=== PATIENT | male | born 1990 | race Hispanic/Latino ===

== ENCOUNTER 2016-10-15 18:33 | Emergency (ER) | payer OTHER ==
[2016-10-15 19:18] VITALS: BP 123/75; PULSE 79; RESP 14; TEMP 98.3; O2SAT 100
--- NOTE | 2016-10-15 19:35 | ED PDOC ---
HPI: General Adult Time Seen by Provider: 10/15/16 19:00 Chief Complaint (Nursing): Back Pain Chief Complaint (Provider): Cyst near coccyx History Per: Patient History/Exam Limitations: no limitations Onset/Duration Of Symptoms: Days Current Symptoms Are (Timing): Still Present Additional Complaint(s): Jas Allison is a 26 year old male that presents to the ED with a chief complaint of a painful cyst to tailbone. Patient was seen by engineering writer and was started on augmentin. His engineering writer told him to see a surgeon and he has an appt with surgeon this coming tuesday. He presents to ED today with pain to affected area. Patient has not taken any meds for pain relief. He denies active drainage, fever or chills. Patient has had similar pain to same area in the past but it has never caused this much pain. Past Medical History Reviewed: Historical Data, Nursing Documentation, Vital Signs Vital Signs: Last Vital Signs Temp 98.3 F 10/15/16 19:14 Pulse 79 10/15/16 19:14 Resp 14 10/15/16 19:14 BP 123/75 10/15/16 19:14 Pulse Ox 100 10/15/16 19:46 - Medical History PMH: No Chronic Diseases - Surgical History Surgical History: Appendectomy Other surgeries: ACL surgery right knee - Family History Family History: States: No Known Family Hx, Unknown Family Hx - Living Arrangements Living Arrangements: With Family - Social History Current smoker - smoking cessation education provided: No Alcohol: Social Drugs: Denies - Home Medications Home Medications: Ambulatory Orders Medication Instructions Recorded Ibuprofen [Motrin Tab] 800 mg PO Q8 PRN #20 tab 10/15/16 Sulfamethoxazole/Trimethoprim 1 tab PO BID #14 tab 10/15/16 [Bactrim DS 800 mg-160 mg] traMADol [Ultram] 50 mg PO TID PRN #15 tab 10/15/16 - Allergies Allergies/Adverse Reactions: Allergies Allergy/AdvReac Type Severity Reaction Status Date / Time azithromycin [From Zithromax] Allergy RASH Verified 10/15/16 19:22 Review of Systems ROS Statement: Except As Marked, All Systems Reviewed And Found Negative Constitutional: Negative for: Fever, Chills Skin: Positive for: Other (cyst in tailbone region) Physical Exam - Reviewed Nursing Documentation Reviewed: Yes Vital Signs Reviewed: Yes - Physical Exam Appears: Positive for: Non-toxic, No Acute Distress Head Exam: Positive for: ATRAUMATIC, NORMOCEPHALIC Cardiovascular/Chest: Positive for: Regular Rate, Rhythm. Negative for: Murmur Respiratory: Positive for: Normal Breath Sounds. Negative for: Wheezing Back: Positive for: Other (indurated, nonfluctuant pilonidal abscess noted to gluteal cleft. No active drainage or bleeding. Mildly tender to palpation, no erythematous streaking) Extremity: Positive for: Normal ROM Neurologic/Psych: Positive for: Alert, Oriented - ECG O2 Sat by Pulse Oximetry: 100 (RA) Pulse Ox Interpretation: Normal Medical Decision Making Medical Decision Making: Impression: Pilonidal Abscess Plan: * Toradol 60 mg IM Patient states he feels better after toradol injection. Discussed various pain control options with patient and inability to drain cyst at this time due to moderate induration with no fluctuance. Encouraged patient to meet with surgeon during his scheduled visit scheduled for this coming tuesday. Explained the importance of soaking area in warm Epsom salts. Patient was instructed to continue with augmentin and was also given rx bactrim , motrin and tramadol. Scribe Attestation: Documented by Anisa Boone, acting as a scribe for Aimee Wong PA-C. Provider Scribe Attestation: All medical record entries made by the Scribe were at my direction and personally dictated by me. I have reviewed the chart and agree that the record accurately reflects my personal performance of the history, physical exam, medical decision making, and the department course for this patient. I have also personally directed, reviewed, and agree with the discharge instructions and disposition. Disposition - Clinical Impression Clinical Impression: Pilonidal abscess - Patient ED Disposition Is Patient to be Admitted: No Counseled Patient/Family Regarding: Diagnosis, Need For Followup, Rx Given - Disposition Referrals: formerly [facility] [Outside] Disposition: Routine/Home Disposition Time: 20:05 Condition: STABLE Additional Instructions: Continue with current antibiotics. Take prescription meds as directed. Soak and sitz baths with Epsom salts as often as possible. Follow-up with surgeon as scheduled on Tuesday. Prescriptions: Ibuprofen [Motrin Tab] 800 mg PO Q8 PRN #20 tab PRN Reason: Pain, Moderate (4-7) Sulfamethoxazole/Trimethoprim [Bactrim DS 800 mg-160 mg] 1 tab PO BID #14 tab traMADol [Ultram] 50 mg PO TID PRN #15 tab PRN Reason: Pain, Moderate (4-7) Instructions: Abscess (ED)
== END 2016-10-15 20:20 | disposition home or self-care (01) ==
LOC: H.ER 18:33
DX: L05.91 Pilonidal cyst without abscess (principal)